=== PATIENT | male | born 1970 | race Caucasian/White ===

== ENCOUNTER 2017-12-09 10:25 | Observation (INO) | payer OTHER ==
[2017-12-09] VITALS (8 sets, daily range): BP systolic 143–188; BP diastolic 88–99; PULSE 81–110; RESP 17–30; TEMP 97.1–98.3; O2SAT 96–100
[~2017-12-09] VITALS: Ht 188 cm; Wt 105.0 kg
[2017-12-09] MEDS ORDERED: SODIUM CHLORIDE 0.9% FLUSH 10 ML FLUSH IVF PRN (11:00)
[2017-12-09] MEDS ORDERED: SODIUM CHLOR 0.9% 1000 ML INJ 1,000 ML IV ONE (11:15)
--- NOTE | 2017-12-09 11:22 | PD ---
HPI Chief Complaint: Chest Pain Time Seen by Provider: 10:56 Travel History International Travel<30 days: No Contact w/Intl Traveler<30days: No Traveled to known affect area: No History of Present Illness HPI 47-year-old male presents the ED for evaluation of sudden onset dizziness, numbness in bilateral lower extremities, intermittent left-sided chest pain, palpitations. States the numbness is worse in the left side than the right side. This occurred while at rest at approximately 10:00 this morning. Lasted a few moments before resolving spontaneously. Chest pain is rated 3/10, worsened by touch and certain motions. The patient denies headache, vision changes, unilateral weakness, facial droop, difficulties with speech, shortness of breath, abdominal pain, nausea, vomiting, dysuria, weakness of the extremities. He endorses daily alcohol use. He endorses daily caffeine intake of 4 12 ounce cups of coffee. He is a current smoker for 20 years. He denies illicit drug use. He is currently following a low sugar diet, has lost ~30 in 7- 8 months. 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 He states that he is under increased stressors, in the process of moving from his apartment. He endorses chronic low back pain and recent overuse. He denies incontinence or saddle anesthesia. He is adopted, does not know his family history. He does not currently have a primary care. States that he has not seen a doctor in years. [facility] Social History Alcohol Use: Yes (DAILY) Tobacco Use: Yes Allergies-Medications (Allergen,Severity, Reaction): Coded Allergies: No Known Allergies (Verified Allergy, Unknown, 12/09/17) Reported Meds & Prescriptions Reported Meds & Active Scripts Active No Active Prescriptions or Reported Medications Review of Systems Except as stated in HPI: all other systems reviewed are Neg Physical Exam Narrative GENERAL: Well-nourished, well-developed anxious white male in no acute distress. SKIN: Warm and dry. HEAD: Normocephalic. Atraumatic. EYES: No scleral icterus. No injection or drainage. PERRLA. EOMI. ENT: Pearly slade tympanic membranes bilaterally. Mucous membranes are dry. Oropharynx without erythema, edema or exudate. NECK: Supple, trachea midline. No JVD or lymphadenopathy. CARDIOVASCULAR: Regular rate and rhythm without murmurs, gallops, or rubs. No carotid bruits. 2+ DP and radial pulses bilaterally. CHEST: Point tenderness over the left pectoral area. Otherwise nontender throughout without deformity or crepitus. No retractions. RESPIRATORY: Breath sounds clear and equal bilaterally. No accessory muscle use. GASTROINTESTINAL: Abdomen soft, non-tender, nondistended. + Bowel sounds MUSCULOSKELETAL: No cyanosis, or edema. Homans sign negative bilaterally. Varicose veins noted, left greater than right. Patient moves extremities spontaneously. NEUROLOGICAL: Awake and alert. Cranial nerves II through XII intact. Motor and sensory grossly within normal limits. Five out of 5 muscle strength in all muscle groups. Normal speech. BACK: Nontender without obvious deformity. No CVA tenderness. Data Data Last Documented VS Vital Signs Date Time Temp Pulse Resp B/P (MAP) Pulse Ox O2 Delivery O2 Flow Rate FiO2 12/09/17 11:34 85 18 167/94 (118) 99 Nasal Cannula 2.00 12/09/17 10:28 97.1 Orders Orders Electrocardiogram (12/09/17 11:00) Ckmb (Isoenzyme) Profile (12/09/17 11:00) Complete Blood Count With Diff (12/09/17 11:00) Comprehensive Metabolic Panel (12/09/17 11:00) Magnesium (Mg) (12/09/17 11:00) Prothrombin Time / Inr (Pt) (12/09/17 11:00) Act Partial Throm Time (Ptt) (12/09/17 11:00) Troponin I (12/09/17 11:00) Ecg Monitoring (12/09/17 11:00) Bilateral Bp Monitoring (12/09/17 11:00) Iv Access Insert/Monitor (12/09/17 11:00) Oximetry (12/09/17 11:00) Sodium Chloride 0.9% Flush (Ns Flush) (12/09/17 11:00) Chest, Pa & Lat (12/09/17 11:00) Blood Glucose (12/09/17 11:12) Sodium Chlor 0.9% 1000 Ml Inj (Ns 1000 M (12/09/17 11:15) Ct Brain W/O Iv Contrast(Rout) (12/09/17 ) Aspirin (Aspirin) (12/09/17 11:30) Potassium Chloride (Kcl) (12/09/17 12:15) CKMB (12/09/17 11:30) CKMB% (12/09/17 11:30) Drug Screen, Random Urine (12/09/17 13:28) Admit Order (Ed Use Only) (12/09/17 13:29) Place In Observation (12/09/17 ) Code Status (12/09/17 13:28) Vital Signs (Adult) Q2HX12,Q4H (12/09/17 13:28) Nih Stroke Scale - Nihss .Daily (12/09/17 13:28) Neuro Checks Q2HX12,Q4H (12/09/17 13:28) Notify Dr: Other (12/09/17 13:28) Pt Request For Service (12/09/17 13:) Activity Oob Ad Ca (12/09/17 13:28) Nursing Bedside Swallow Assess .ONCE (12/09/17 13:28) Scd Bilateral/Knee High ROSIE.QSHIFT (12/09/17 13:28) Complete Blood Count With Diff (12/10/17 06:00) Hemoglobin (Hgb) A1c (12/09/17 13:28) Basic Metabolic Panel (Bmp) (12/10/17 06:00) Lipid Profile (12/10/17 06:00) Us Carotid Arteries Comp Bilat (12/09/17 ) Holter Monitor Recording (12/09/17 ) Mra Brain W/O Contrast (Cow) (12/09/17 ) Mri Brain W/O Contrast (12/09/17 ) Echo 2d Comp With Doppler (12/09/17 ) Consult Neurology (12/09/17 ) Sodium Chloride 0.9% Flush (Ns Flush) (12/09/17 21:00) Sodium Chloride 0.9% Flush (Ns Flush) (12/09/17 13:30) Enalaprilat Inj (Vasotec Inj) (12/09/17 13:30) Aspirin (Aspirin) (12/09/17 13:30) Central Sterile Supply Technician / Telemetry ROSIE.Q8H (12/09/17 13:28) Consult Stroke Navigator (12/09/17 ) Scd Bilateral/Knee High ROSIE.BID (12/09/17 13:28) Thyroid Stimulating Hormone (12/09/17 13:28) Free Thyroxine (T4) (12/09/17 13:28) Rapid Plasma Regin (Rpr) W Ttr (12/09/17 13:28) Vitamin B12 (12/09/17 13:28) Folate, Serum (12/09/17 13:28) Ammonia (12/09/17 13:28) Labs Laboratory Tests Test 12/09/17 11:30 White Blood Count 9.5 TH/MM3 Red Blood Count 4.60 MIL/MM3 Hemoglobin 15.0 GM/DL Hematocrit 44.8 % Mean Corpuscular Volume 97.4 FL Mean Corpuscular Hemoglobin 32.6 PG Mean Corpuscular Hemoglobin Concent 33.5 % Red Cell Distribution Width 14.1 % Platelet Count 206 TH/MM3 Mean Platelet Volume 9.6 FL Neutrophils (%) (Auto) 65.4 % Lymphocytes (%) (Auto) 25.9 % Monocytes (%) (Auto) 7.3 % Eosinophils (%) (Auto) 0.9 % Basophils (%) (Auto) 0.5 % Neutrophils # (Auto) 6.2 TH/MM3 Lymphocytes # (Auto) 2.4 TH/MM3 Monocytes # (Auto) 0.7 TH/MM3 Eosinophils # (Auto) 0.1 TH/MM3 Basophils # (Auto) 0.0 TH/MM3 CBC Comment DIFF FINAL Differential Comment Prothrombin Time 9.7 SEC Prothromb Time International Ratio 1.0 RATIO Activated Partial Thromboplast Time 25.5 SEC Blood Urea Nitrogen 15 MG/DL Creatinine 1.04 MG/DL Random Glucose 84 MG/DL Total Protein 8.2 GM/DL Albumin 4.3 GM/DL Calcium Level 9.6 MG/DL Magnesium Level 1.6 MG/DL Alkaline Phosphatase 54 U/L Aspartate Amino Transf (AST/SGOT) 28 U/L Alanine Aminotransferase (ALT/SGPT) 28 U/L Total Bilirubin 0.7 MG/DL Sodium Level 139 MEQ/L Potassium Level 3.4 MEQ/L Chloride Level 106 MEQ/L Carbon Dioxide Level 13.0 MEQ/L Anion Gap 20 MEQ/L Estimat Glomerular Filtration Rate 77 ML/MIN Total Creatine Kinase 396 U/L Creatine Kinase MB 1.7 NG/ML Creatine Kinase MB % 0.4 % Troponin I LESS THAN 0.02 NG/ML Vitamin B12 Level 269 PG/ML Folate 6.7 NG/ML Free Thyroxine 1.33 NG/DL Thyroid Stimulating Hormone 3rd Gen 0.765 uIU/ML Ethyl Alcohol Level 55 MG/DL MDM Medical Decision Making Medical Screen Exam Complete: Yes Emergency Medical Condition: Yes Differential Diagnosis Anxiety versus hypoglycemia versus dehydration versus caffeine misuse versus alcohol withdrawal versus radiculopathy versus less likely ACS versus less likely ICH versus hypertension versus other Narrative Course 47-year-old male presents the ED for evaluation of sudden onset dizziness, numbness in bilateral lower extremities, intermittent left-sided chest pain, palpitations. This occurred while at rest at approximately 10:00 this morning. Lasted a few moments before resolving spontaneously. He endorses daily alcohol use. He endorses daily caffeine intake of 4 12 ounce cups of coffee. He is a current smoker for 20 years. He denies illicit drug use. He is currently following a low sugar diet, has lost ~30 in 7-8 months. 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 He states that he is under increased stressors, in the process of moving from his apartment. He endorses chronic low back pain and recent overuse. He is adopted, does not know his family history. He does not currently have a primary care. States that he has not seen a doctor in years. Patient's afebrile, pulse 110, BP 188/9930, O2 sats 100 on room air on presentation. On exam there is no focal neuro deficits. He has reproducible left-sided chest pain. Exam is otherwise unremarkable. IV was established. Patient was administered 325 mg aspirin, 1 L normal saline. EKG rate 97, sinus rhythm. VT interval 148, QRS 106, QTc 418 ms. Borderline LAD. Incomplete RBBB. No acute ST changes. Reviewed by Dr. Sargent. CXR: Negative exam per radiology read. Cardiac enzymes negative 1. CT brain: Negative CT head noncontrast per radiology read. CBC unremarkable. INR 1.0. CMP: Potassium 3.4. BUN 15, creatinine 1.04. CK 396. I discussed the results of the workup with the patient. He states that he still having the numbness in his extremities but otherwise is feeling better. Heart rate 85, BP 167/94, respiratory rate 18 on recheck. I recommended admission for TIA and ACS rule out. Patient is agreeable to the plan. I spoke with Dr. Gallagher who agrees to accept the patient to the medicine service. Please see medicine notes for disposition. Scripts No Active Prescriptions or Reported Meds Graciela Ortiz Dec 09, 2017 11:22
[2017-12-09] MEDS ORDERED: ASPIRIN 325 MG TAB PO ONE (11:30)
--- NOTE | 2017-12-09 11:43 | RADRPT ---
EXAM DATE: 12/09/2017 11:32 AM EDT AGE/SEX: 47 years / Male INDICATIONS: Chest pain. Possible anxiety attack. CLINICAL DATA: This is the patient's initial encounter. Patient reports that signs and symptoms have been present for 1 day and indicates a pain score of 3/10. MEDICAL/SURGICAL HISTORY: None. None. COMPARISON: No prior [facility] exams available for comparison. FINDINGS: PA and lateral views of the chest demonstrate the lungs to be symmetrically aerated without evidence of mass, infiltrate or effusion. The cardiomediastinal contours are unremarkable. Osseous structures are intact. CONCLUSION: Negative examination. Electronically signed by: Herber David MD 12/09/2017 11:41 AM EDT
[2017-12-09 11:52] LABS: AUTOMATED NEUTROPHIL # 6.2 TH/MM3 (1.8-7.7); BASOPHIL % 0.5 % (0.0-2.0); EOSINOPHIL # 0.1 TH/MM3 (0-0.4); EOSINOPHIL % 0.9 % (0.0-4.0); HEMATOCRIT 44.8 % (39.0-51.0); LYMPH % 25.9 % (9.0-44.0); LYMPHOCYTE # 2.4 TH/MM3 (1.0-4.8); MEAN CELL VOLUME 97.4 FL (80.0-100.0); MEAN CORPUSCULAR HEMOGLOBIN 32.6 PG (27.0-34.0); MEAN CORPUSCULAR HGB CONC 33.5 % (32.0-36.0); MEAN PLATELET VOLUME 9.6 FL (7.0-11.0); MONO % 7.3 % (0.0-8.0); MONOCYTE # 0.7 TH/MM3 (0-0.9); NEUT % 65.4 % (16.0-70.0); PLATELET COUNT 206 TH/MM3 (150-450); RED CELL DISTRIBUTION WIDTH 14.1 % (11.6-17.2); WHITE BLOOD COUNT 9.5 TH/MM3 (4.0-11.0)
[2017-12-09 12:04] LABS: PROTHROMBIN TIME - PATIENT 9.7 SEC (9.8-11.6)
[2017-12-09 12:14] LABS: ALBUMIN 4.3 GM/DL (3.4-5.0); AST (GOT) 28 U/L (15-37); BLOOD UREA NITROGEN 15 MG/DL (7-18); CALCIUM 9.6 MG/DL (8.5-10.1); CHLORIDE 106 MEQ/L (98-107); CREATININE 1.04 MG/DL (0.60-1.30); GLOMERULAR FILTRATION RATE 77 ML/MIN (>89); GLUCOSE,RANDOM 84 MG/DL (74-106); MAGNESIUM 1.6 MG/DL (1.5-2.5); SODIUM (NA) 139 MEQ/L (136-145)
[2017-12-09] MEDS ORDERED: POTASSIUM CHLORIDE 20 MEQ CONTROLLED RELEASE TAB PO ONE (12:15)
[2017-12-09 12:19] LABS: ALKALINE PHOSPHATASE 54 U/L (45-117); ALT (GPT) 28 U/L (12-78); TOTAL BILIRUBIN ADULT 0.7 MG/DL (0.2-1.0); TOTAL PROTEIN 8.2 GM/DL (6.4-8.2); TROPONIN I LESS THAN 0.02 NG/ML (0.02-0.05)
--- NOTE | 2017-12-09 12:44 | RADRPT ---
EXAM DATE: 12/09/2017 12:37 PM EDT AGE/SEX: 47 years / Male INDICATIONS: Left leg numbness, dizziness. CLINICAL DATA: This is the patient's initial encounter. Patient reports that signs and symptoms have been present for 1 day and indicates a pain score of 3/10. MEDICAL/SURGICAL HISTORY: None. None. RADIATION DOSE: 36.86 CTDI (mGy) COMPARISON: No prior [facility] exams available for comparison. TECHNIQUE: CT of the head without contrast. Using automated exposure control and adjustment of the mA and/or kV according to patient size, radiation dose was kept as low as reasonably achievable to ob tain optimal diagnostic quality images. FINDINGS: Cerebrum: The ventricles are normal for age. No evidence of midline shift, mass lesion, hemorrhage or acute infarction. No extraaxial fluid collections are seen. Posterior Fossa: The cerebellum and brainstem are intact. The 4th ventricle is midline. The cerebe llopontine angle is unremarkable. Extracranial: The visualized portion of the orbits is intact. Skull: The calvaria is intact. No evidence of skull fracture. CONCLUSION: Negative CT Head non contrast. Electronically signed by: Herber David MD 12/09/2017 12:43 PM EDT
[2017-12-09] MEDS ORDERED: ASPIRIN 325 MG TAB PO SCH (13:30)
[2017-12-09] MEDS ORDERED: SODIUM CHLORIDE 0.9% FLUSH 10 ML FLUSH IV FLUSH PRN ×2 (13:30→15:45)
[2017-12-09] MEDS ORDERED: ENALAPRILAT 1.25 MG/ML VIAL IV PUSH PRN (13:30)
[2017-12-09] MEDS ORDERED: NITROGLYCERIN 0.4 MG SL 25 TABS/BTL SL PRN (13:45)
--- NOTE | 2017-12-09 14:20 | HHI.HP ---
HPI Service [facility] Hospitalists Primary Care Physician Dr. Gilbert Jo Admission Diagnosis chest pain, parasthesias, hypertension Chief Complaint: Chest pain, paresthesia Travel History International Travel<30 Days: No Contact w/Intl Traveler <30 Da: No Traveled to Known Affected Are: No History of Present Illness Mr. Cowart is a 47 y/o male with chronic low back pain, tobacco use and regular alcohol use. He presented to the ED for evaluation of sudden onset of dizziness , numbness in left lower extremity, and intermittent left-sided chest pain. This reported numbness on the left side that occurred while at rest at approximately 10:00 this morning and he became increasingly anxious and felt dizzy. This reportedly lasted a few moments before resolving spontaneously. The chest pain is located on the left side and is reportedly worsened by touch and certain motions that has been occurring intermittently for the last few months, lasting about 5-10 minutes and would resolve on its own. There is no radiation of the pain anywhere. The patient drinks about 4-5 cups of coffee per day. He denies any associated SOB, palpitations, nausea or diaphoresis. He does report that he is generally an anxious person and seems to be self medicating with alcohol. The patient denies headache, vision changes, unilateral weakness, facial droop, difficulties with speech, shortness of breath, abdominal pain, nausea, vomiting, dysuria, weakness of the extremities. He does report daily alcohol use. He is currently following a low sugar diet and has lost ~30 in 7-8 months. He states that he is under increased stressors, in the process of moving from his apartment. He denies incontinence or saddle anesthesia. Review of Systems Constitutional: COMPLAINS OF: Dizziness, DENIES: Diaphoretic episodes, Fever, Chills Eyes: DENIES: Vision loss Ears, nose, mouth, throat: DENIES: Hearing loss Respiratory: DENIES: Shortness of breath Cardiovascular: DENIES: Chest pain, Palpitations, Dyspnea on Exertion, Lower Extremity Edema Gastrointestinal: DENIES: Abdominal pain, Diarrhea, Nausea, Reflux, Vomiting Genitourinary: DENIES: Hematuria, Dysuria Musculoskeletal: DENIES: Joint pain, Back pain, Neck pain Integumentary: DENIES: Pruritus, Rash Neurologic: COMPLAINS OF: Paresthesias, DENIES: Abnormal gait, Localized weakness, Seizures, Poor Balance Psychiatric: DENIES: Confusion Past Family Social History Past Medical History Chronic back pain Tobacco use Alcohol use Past Surgical History None reported Reported Medications No Active Prescriptions or Reported Medications Allergies: Coded Allergies: No Known Allergies (Verified Allergy, Unknown, 12/09/17) Family History He was adopted, does not know his biological family history. Social History Pt does report daily alcohol use, typically drinks 1-2 during the week and on the weekends upwards of 5-6 drinks. Daily caffeine intake of 4-5, 12 ounce cups of coffee. (+)Tobacco use, 1ppd x 20 years. 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 Physical Exam Vital Signs Vital Signs Date Time Temp Pulse Resp B/P (MAP) Pulse Ox O2 Delivery O2 Flow Rate FiO2 12/09/17 11:34 85 18 167/94 (118) 99 Nasal Cannula 2.00 12/09/17 11:32 83 18 182/95 (124) 98 Nasal Cannula 2.00 167/94 (118) 12/09/17 11:31 83 18 98 Nasal Cannula 2.00 12/09/17 10:53 100 Nasal Cannula 2.00 12/09/17 10:46 97 22 180/93 (122) 100 Nasal Cannula 2.00 12/09/17 10:28 97.1 110 30 188/99 (128) 100 Physical Exam GENERAL: This is a well-nourished, well-developed patient, in no apparent distress. SKIN: No rashes, ecchymoses or lesions. Cool and dry. HEENT: Atraumatic. Normocephalic. No temporal or scalp tenderness. No scleral icterus. Airway patent. NECK: Trachea midline, supple, nontender. CARDIO: Regular rate and rhythm without murmurs, gallops, or rubs. RESP: CTA bilaterally. No wheezes, rales, or rhonchi. ABD: +BS, soft, non-tender, nondistended. EXT: Extremities without clubbing, cyanosis, or edema. No joint tenderness, effusion, or edema noted. No calf tenderness. 2+ pedal pulses bilaterally. NEURO: Awake and alert. Cranial nerves II through XII intact. Motor and sensory grossly within normal limits. Five out of 5 muscle strength in all muscle groups. Normal speech. Laboratory Laboratory Tests Test 12/09/17 11:30 12/09/17 13:48 White Blood Count 9.5 Red Blood Count 4.60 Hemoglobin 15.0 Hematocrit 44.8 Mean Corpuscular Volume 97.4 Mean Corpuscular Hemoglobin 32.6 Mean Corpuscular Hemoglobin Concent 33.5 Red Cell Distribution Width 14.1 Platelet Count 206 Mean Platelet Volume 9.6 Neutrophils (%) (Auto) 65.4 Lymphocytes (%) (Auto) 25.9 Monocytes (%) (Auto) 7.3 Eosinophils (%) (Auto) 0.9 Basophils (%) (Auto) 0.5 Neutrophils # (Auto) 6.2 Lymphocytes # (Auto) 2.4 Monocytes # (Auto) 0.7 Eosinophils # (Auto) 0.1 Basophils # (Auto) 0.0 CBC Comment DIFF FINAL Differential Comment Prothrombin Time 9.7 Prothromb Time International Ratio 1.0 Activated Partial Thromboplast Time 25.5 Blood Urea Nitrogen 15 Creatinine 1.04 Random Glucose 84 Total Protein 8.2 Albumin 4.3 Calcium Level 9.6 Magnesium Level 1.6 Alkaline Phosphatase 54 Aspartate Amino Transf (AST/SGOT) 28 Alanine Aminotransferase (ALT/SGPT) 28 Total Bilirubin 0.7 Sodium Level 139 Potassium Level 3.4 Chloride Level 106 Carbon Dioxide Level 13.0 Anion Gap 20 Estimat Glomerular Filtration Rate 77 Total Creatine Kinase 396 Creatine Kinase MB 1.7 Creatine Kinase MB % 0.4 Troponin I LESS THAN 0.02 Result Diagram: 12/09/17 1130 12/09/17 1130 Imaging Last Impressions Chest X-Ray 12/09/17 1100 Signed Impressions: CONCLUSION: Negative examination. Head CT 12/09/17 0000 Signed Impressions: CONCLUSION: Negative CT Head non contrast. Caprini VTE Risk Assessment Caprini VTE Risk Assessment: Mod/High Risk (score >= 2) Caprini Risk Assessment Model Point Value = 1 Point Value = 2 Point Value = 3 Point Value = 5 Age 41-60 Minor surgery BMI > 25 kg/m2 Swollen legs Varicose veins or History of unexplained or recurrent spontaneous Oral contraceptives or hormone replacement Sepsis (< 1 month) Serious lung disease, including pneumonia (< 1 month) Abnormal pulmonary function Acute myocardial infarction Congestive heart failure (< 1 month) History of inflammatory bowel disease Medical patient at bed rest Age 61-74 Arthroscopic surgery Major open surgery (> 45 min) Laparoscopic surgery (> 45 min) Malignancy Confined to bed (> 72 hours) Immobilizing plaster cast Central venous access Age >= 75 History of VTE Family history of VTE Factor V Leiden Prothrombin [id number] Lupus anticoagulant Anticardiolipin antibodies Elevated serum homocysteine Heparin-induced thrombocytopenia Other congenital or acquired thrombophilia Stroke (< 1 month) Elective arthroplasty Hip, pelvis, or leg fracture Acute spinal cord injury (< 1 month) Prophylaxis Regimen Total Risk Factor Score Risk Level Prophylaxis Regimen 0-1 Low Early ambulation 2 Moderate Order ONE of the following: *Sequential Compression Device (SCD) *Heparin 5000 units SQ BID 3-4 Higher Order ONE of the following medications: *Heparin 5000 units SQ TID *Enoxaparin/Lovenox 40 mg SQ daily (WT < 150 kg, CrCl > 30 mL/min) *Enoxaparin/Lovenox 30 mg SQ daily (WT < 150 kg, CrCl > 10-29 mL/min) *Enoxaparin/Lovenox 30 mg SQ BID (WT < 150 kg, CrCl > 30 mL/min) AND/OR *Sequential Compression Device (SCD) 5 or more Highest Order ONE of the following medications: *Heparin 5000 units SQ TID (Preferred with Epidurals) *Enoxaparin/Lovenox 40 mg SQ daily (WT < 150 kg, CrCl > 30 mL/min) *Enoxaparin/Lovenox 30 mg SQ daily (WT < 150 kg, CrCl > 10-29 mL/min) *Enoxaparin/Lovenox 30 mg SQ BID (WT < 150 kg, CrCl > 30 mL/min) AND *Sequential Compression Device (SCD) Assessment and Plan Problem List: (1) Paresthesia ICD Codes: R20.2 - Paresthesia of skin Status: Acute Plan: - Pt is a 47 y/o male with chronic low back pain, tobacco use and regular alcohol use. - He presented to the ED for evaluation of sudden onset of dizziness, numbness in left lower extremity, and intermittent left-sided chest pain. - This reported LLE numbness occurred today while at rest at approximately 10: 00 this morning and he became increasingly anxious and felt dizzy. This reportedly seems to have been waxing and waning since onset. There has been no reported weakness in the LE and he denies any weakness or paresthesia in the UE or the RLE. Pt has good pulses in bilateral LE on examination. - Neurology has been consulted - Head CT was negative. - MRI/MRA is ordered - Carotid US ordered - Holter - Telemetry - Pt was given ASA in the ED - Supportive care - DVT prophylaxis (2) Chest pain ICD Codes: R07.9 - Chest pain, unspecified Plan: - The chest pain is located on the left side and is reportedly worsened by touch and certain motions that has been occurring intermittently for the last few months, lasting about 5-10 minutes and would resolve on its own. There is no radiation of the pain anywhere. He denies any associated SOB, palpitations, nausea or diaphoresis. - He has been under increased stress over the last few months - First set of Troponin is negative. - CK is elevated slightly but pt was moving from an apartment to his house all weekend - Trend serial CE - Check 2D echo - Pt given ASA in the ED and we will continue this in the morning (3) Alcohol abuse ICD Codes: F10.10 - Alcohol abuse, uncomplicated Status: Chronic Plan: - He does report that he is generally an anxious person and seems to be self medicating with alcohol. - [facility] protocol - Start Librium 25mg TID (4) Tobacco abuse ICD Codes: Z72.0 - Tobacco use Status: Chronic Plan: - Pt declines nicotine patch Assessment and Plan Patient examined. Assessment and plan formulated with Salma Matthews PA-C. I agree with the above. Pt's c/o atypical paresthesia at E which stated yesterday. Pt describes the paresthesia as circumferential and starting on day of admission. Pt c/o anxiety which is sometimes relieved with alcohol and tobacco. Pt feels that he has been under increased pressure at work recently. Pt also c/o chest pain. Pt describes the chest pain as occurring over the left side of his chest without radiation. No anginal equivalents such as shortness of breath, nausea, any vomiting, or diaphoresis. Patient states that these episodes of intermittent chest pain have been ongoing for months and usually last 5-10 minutes. The chest pain resolves spontaneously. Patient is adopted and cannot provide family history. Salma Matthews Dec 09, 2017 14:20 Gilbert Gallagher DO Dec 10, 2017 08:47
--- NOTE | 2017-12-09 14:54 | MB ---
cc: Baudilio Sosa MD, PhD DATE: 12/09/2017 REASON FOR CONSULTATION: TIA. HISTORY OF PRESENT ILLNESS: Mr. Cowart is a very nice 47-year-old man who presents with chest pain, as well as numbness involving the left leg and left arm. He has no weakness. Denies any double vision or slurred speech. The numbness in the arm has improved, but he still has difficulty with numbness of the left leg. PAST MEDICAL HISTORY: Otherwise unremarkable. MEDICATIONS AT HOME: None. ALLERGIES: NONE KNOWN. SOCIAL HISTORY: He does smoke. He does drink alcohol. He drinks caffeine daily. PHYSICAL EXAMINATION: VITAL SIGNS: Blood pressure is 132/98, pulse is 81, respiratory rate is 18, temperature is 97.1 degrees. NEUROLOGICAL EXAMINATION: Higher cortical functions are normal. Cranial nerves intact. Motor Exam: He has normal strength and tone of all groups in the upper and lower extremities. There is no drift. Fine motor skills are within normal limits. Reflexes are symmetric. Cerebellar testing is normal. Sensory exam is slightly diminished in the left leg compared with the right to soft touch. Normal sensation in the upper extremities. Cerebellar testing is normal. IMAGING STUDIES: CT of the brain is normal. LABORATORY DATA: The white count is 9500, hemoglobin 15, hematocrit 44%, platelet count 206,000. PT 9.7, INR 1, aPTT 25.5. Sodium is 139, potassium 3.4, chloride 106. The BUN is 15, creatinine 1.04. EKG: He is in normal sinus rhythm. IMPRESSION: Possible lacunar stroke, right hemisphere. RECOMMENDATIONS: Start aspirin 325 mg daily. We will obtain further evaluation, MRI/MRA brain, echocardiogram, carotid ultrasound, lipid panel. Monitor cardiac telemetry, rule out atrial fibrillation. Baudilio Sosa MD, PhD [facility] , 02:37 PM , 02:53 PM
[2017-12-09 15:30] LABS: FOLATE 6.7 NG/ML (3.1-17.5); FREE T4 1.33 NG/DL (0.76-1.46)
[2017-12-09] MEDS ORDERED: LORazepam 1 MG TAB PO PRN (15:45)
[2017-12-09] MEDS ORDERED: FLUMAZENIL 0.5 MG/5 ML VIAL IV PUSH PRN (15:45)
[2017-12-09] MEDS ORDERED: LORazepam 2 MG/ML VIAL IV PUSH PRN ×4 (15:45)
[2017-12-09] MEDS ORDERED: LORazepam 2 MG TAB PO PRN (15:45)
--- NOTE | 2017-12-09 16:29 | RADRPT ---
EXAM DATE: 12/09/2017 4:14 PM EDT AGE/SEX: 47 years / Male INDICATIONS: Bilateral lower extremity numbness. CLINICAL DATA: This is the patient's initial encounter. Patient reports that signs and symptoms have been present for 1 day and indicates a pain score of 2/10. MEDICAL/SURGICAL HISTORY: None. None. COMPARISON: No prior [facility] exams available for comparison. FINDINGS: The vertebral bodies are in normal alignment without evidence of compression deformity prominent anisa r bridging anterior osteophyte at C4-5. Bone density is normal for age. Soft tissues are grossly int act. CONCLUSION: 1. 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 2. Otherwise, vertebral body and disc heights are maintained without acute fracture or listhesis. Electronically signed by: Ian Soto MD 12/09/2017 4:27 PM EDT
[2017-12-09 17:10] LABS: HEMOGLOBIN A1C 5.2 % (4.3-6.0)
[2017-12-09] MEDS: chlordiazePOXIDE 25 MG CAP PO SCH (17:11)
--- NOTE | 2017-12-09 17:22 | RADRPT ---
EXAM DATE: 12/09/2017 5:01 PM EDT AGE/SEX: 47 years / Male INDICATIONS: CVA. Left sided weakness. CLINICAL DATA: This is the patient's initial encounter. Patient reports that signs and symptoms have been present for 1 day and indicates a pain score of 0/10. MEDICAL/SURGICAL HISTORY: None. None. COMPARISON: No prior [place] exams available for comparison. TECHNIQUE: 3D [id number] MRA was performed. Source images, multiplanar STS MIP, and 3D volum e MIP reconstructions were reviewed. FINDINGS: There is excellent visualization of the major intracranial arteries out to the second-order branch ve ssels. There is no evidence for aneurysm, vessel truncation or stenosis, and no evidence for vascula r malformation. CONCLUSION: Negative MRA [facility] ([facility]) non contrast. Electronically signed by: Herber David MD 12/09/2017 5:21 PM EDT
--- NOTE | 2017-12-09 17:24 | RADRPT ---
EXAM DATE: 12/09/2017 5:08 PM EDT AGE/SEX: 47 years / Male INDICATIONS: CVA. Left sided weakness. CLINICAL DATA: This is the patient's initial encounter. Patient reports that signs and symptoms have been present for 1 day and indicates a pain score of 0/10. MEDICAL/SURGICAL HISTORY: None. None. COMPARISON: No prior [facility] exams available for comparison. TECHNIQUE: Multiplanar, multisequence examination of the brain was performed without contrast. FINDINGS: Cerebrum: The ventricles are normal for age. No evidence of midline shift, mass lesion, hemorrhage or acute infarction. No extraaxial fluid collections are seen. The pituitary gland and suprasellar cistern are normal in configuration. White Matter: Minimal white matter changes with a few deep white matter and subcortical foci of incr eased T2 FLAIR signal intensity predominantly on the right. Posterior Fossa: The cerebellum and brainstem are intact. The 4th ventricle is midline. The cerebel lopontine angle is unremarkable. The cerebellar tonsils are normal in position. Diffusion Imaging: No focal areas of restricted diffusion are seen. No evidence of acute infarction . Extracranial: The visualized portions of the orbits and paranasal sinuses are unremarkable. CONCLUSION: 1. Minimal, chronic-appearing white matter changes predominantly on the right. 2. Nothing acute. Electronically signed by: Ian Soto MD 12/09/2017 5:22 PM EDT
--- NOTE | 2017-12-09 17:52 | RADRPT ---
EXAM DATE: 12/09/2017 5:33 PM EDT AGE/SEX: 47 years / Male INDICATIONS: Transient ischemic attack. CLINICAL DATA: This is the patient's initial encounter. Patient reports that signs and symptoms have been present for 2 days and indicates a pain score of 0/10. MEDICAL/SURGICAL HISTORY: . No significant medical history. None. COMPARISON: No prior [place] exams available for comparison. No external comparison. VELOCITY PARAMETERS: ICA/CCA Ratio: Right 0.8 , Left 1.0 ICA: Right 105 cm/sec, Left 102 cm/sec CCA: Right 127 cm/sec, Left 102 cm/sec ECA: Right 100 cm/sec, Left 83 cm/sec Vertebral: Right 69 cm/sec antegrade, Left 70 cm/sec antegrade FINDINGS: Right Carotid: No significant stenosis is visualized. The waveforms are within normal limits. Left Carotid: No significant stenosis is visualized. The waveforms are within normal limits. Other: None. CONCLUSION: No evidence of flow-limiting carotid stenosis. Electronically signed by: Herber David MD 12/09/2017 5:51 PM EDT
[2017-12-09] MEDS: SODIUM CHLORIDE 0.9% FLUSH 10 ML FLUSH IV FLUSH SCH (20:10)
[2017-12-09 20:30] LABS: MAGNESIUM 1.7 MG/DL (1.5-2.5)
[2017-12-09 20:33] LABS: TROPONIN I LESS THAN 0.02 NG/ML (0.02-0.05)
[2017-12-09] MEDS ORDERED: SODIUM CHLORIDE 0.9% FLUSH 10 ML FLUSH IV FLUSH SCH (21:00)
[2017-12-10 00:41] VITALS: BP 160/96; PULSE 70; RESP 17; TEMP 98.3; O2SAT 93
[2017-12-10 01:35] LABS: TROPONIN I LESS THAN 0.02 NG/ML (0.02-0.05)
[2017-12-10 03:12] VITALS: BP 139/98; PULSE 74; RESP 16; TEMP 98.4; O2SAT 98
[2017-12-10 06:52] LABS: AUTOMATED NEUTROPHIL # 6.4 TH/MM3 (1.8-7.7); BASOPHIL % 0.4 % (0.0-2.0); EOSINOPHIL # 0.1 TH/MM3 (0-0.4); EOSINOPHIL % 1.2 % (0.0-4.0); HEMOGLOBIN 14.6 GM/DL (13.0-17.0); LYMPH % 18.5 % (9.0-44.0); LYMPHOCYTE # 1.6 TH/MM3 (1.0-4.8); MEAN CELL VOLUME 98.6 FL (80.0-100.0); MEAN CORPUSCULAR HEMOGLOBIN 33.5 PG (27.0-34.0); MEAN CORPUSCULAR HGB CONC 33.9 % (32.0-36.0); MEAN PLATELET VOLUME 9.4 FL (7.0-11.0); MONO % 6.6 % (0.0-8.0); MONOCYTE # 0.6 TH/MM3 (0-0.9); NEUT % 73.3 % (16.0-70.0); PLATELET COUNT 170 TH/MM3 (150-450); RED BLOOD COUNT 4.36 MIL/MM3 (4.50-5.90); RED CELL DISTRIBUTION WIDTH 13.8 % (11.6-17.2); WHITE BLOOD COUNT 8.7 TH/MM3 (4.0-11.0)
[2017-12-10 07:11] LABS: BICARBONATE 18.5 MEQ/L (21.0-32.0); CALCIUM 8.7 MG/DL (8.5-10.1); CREATININE 0.73 MG/DL (0.60-1.30)
[2017-12-10 07:17] LABS: CHOLESTEROL/ HDL RATIO 3.8 RATIO; HDL CHOLESTEROL 41.5 MG/DL (40.0-60.0)
[2017-12-10 08:00] VITALS: BP 158/87; PULSE 69; RESP 20; TEMP 97.8; O2SAT 97
[2017-12-10 08:50] VITALS: PULSE 71
[2017-12-10] MEDS ORDERED: ASPIRIN 325 MG TAB PO SCH (09:00)
[2017-12-10] MEDS: chlordiazePOXIDE 25 MG CAP PO SCH ×2 (09:47→12:51)
[2017-12-10] MEDS: SODIUM CHLORIDE 0.9% FLUSH 10 ML FLUSH IV FLUSH SCH (09:47)
--- NOTE | 2017-12-10 11:11 | HHI.PR ---
Subjective Remarks Pt planned for treadmill stress test today Objective Vitals Vital Signs Date Time Temp Pulse Resp B/P (MAP) Pulse Ox O2 Delivery O2 Flow Rate FiO2 12/10/17 08:50 71 12/10/17 08:00 97.8 69 20 158/87 (110) 97 12/10/17 03:12 98.4 74 16 139/98 (112) 98 12/10/17 00:41 98.3 70 17 160/96 (117) 93 12/09/17 19:37 98.2 84 17 143/88 (106) 96 12/09/17 16:02 98.3 86 20 177/89 (118) 97 12/09/17 14:22 81 18 172/98 (122) 100 12/09/17 14:22 81 18 172/98 (122) 100 Room Air 12/09/17 11:34 85 18 167/94 (118) 99 Nasal Cannula 2.00 12/09/17 11:32 83 18 182/95 (124) 98 Nasal Cannula 2.00 167/94 (118) 12/09/17 11:31 83 18 98 Nasal Cannula 2.00 12/10/17 12/10/17 12/11/17 15:00 23:00 07:00 Intake Total 200 ml Balance 200 ml Intake Oral 200 ml Result Diagram: 12/10/17 0550 12/10/17 0555 Other Results Laboratory Tests Test 12/09/17 11:30 12/09/17 13:48 12/09/17 18:30 12/09/17 18:37 White Blood Count 9.5 TH/MM3 Red Blood Count 4.60 MIL/MM3 Hemoglobin 15.0 GM/DL Hematocrit 44.8 % Mean Corpuscular Volume 97.4 FL Mean Corpuscular Hemoglobin 32.6 PG Mean Corpuscular Hemoglobin Concent 33.5 % Red Cell Distribution Width 14.1 % Platelet Count 206 TH/MM3 Mean Platelet Volume 9.6 FL Neutrophils (%) (Auto) 65.4 % Lymphocytes (%) (Auto) 25.9 % Monocytes (%) (Auto) 7.3 % Eosinophils (%) (Auto) 0.9 % Basophils (%) (Auto) 0.5 % Neutrophils # (Auto) 6.2 TH/MM3 Lymphocytes # (Auto) 2.4 TH/MM3 Monocytes # (Auto) 0.7 TH/MM3 Eosinophils # (Auto) 0.1 TH/MM3 Basophils # (Auto) 0.0 TH/MM3 CBC Comment DIFF FINAL Differential Comment Prothrombin Time 9.7 SEC Prothromb Time International Ratio 1.0 RATIO Activated Partial Thromboplast Time 25.5 SEC Blood Urea Nitrogen 15 MG/DL Creatinine 1.04 MG/DL Random Glucose 84 MG/DL Total Protein 8.2 GM/DL Albumin 4.3 GM/DL Calcium Level 9.6 MG/DL Magnesium Level 1.6 MG/DL 1.7 MG/DL Alkaline Phosphatase 54 U/L Aspartate Amino Transf (AST/SGOT) 28 U/L Alanine Aminotransferase (ALT/SGPT) 28 U/L Total Bilirubin 0.7 MG/DL Sodium Level 139 MEQ/L Potassium Level 3.4 MEQ/L Chloride Level 106 MEQ/L Carbon Dioxide Level 13.0 MEQ/L Anion Gap 20 MEQ/L Estimat Glomerular Filtration Rate 77 ML/MIN Hemoglobin A1c 5.2 % Total Creatine Kinase 396 U/L 284 U/L Creatine Kinase MB 1.7 NG/ML Creatine Kinase MB % 0.4 % Troponin I LESS THAN 0.02 NG/ML LESS THAN 0.02 NG/ML Vitamin B12 Level 269 PG/ML Folate 6.7 NG/ML Free Thyroxine 1.33 NG/DL Thyroid Stimulating Hormone 3rd Gen 0.765 uIU/ML Ethyl Alcohol Level 55 MG/DL Ammonia 16 MCMOL/L Rapid Plasma Reagin NON-REACTIVE Urine Opiates Screen NEG Urine Barbiturates Screen NEG Urine Amphetamines Screen NEG Urine Benzodiazepines Screen NEG Urine Cocaine Screen NEG Urine Cannabinoids Screen NEG Test 12/10/17 00:15 12/10/17 05:50 12/10/17 05:55 Total Creatine Kinase 227 U/L Troponin I LESS THAN 0.02 NG/ML White Blood Count 8.7 TH/MM3 Red Blood Count 4.36 MIL/MM3 Hemoglobin 14.6 GM/DL Hematocrit 43.0 % Mean Corpuscular Volume 98.6 FL Mean Corpuscular Hemoglobin 33.5 PG Mean Corpuscular Hemoglobin Concent 33.9 % Red Cell Distribution Width 13.8 % Platelet Count 170 TH/MM3 Mean Platelet Volume 9.4 FL Neutrophils (%) (Auto) 73.3 % Lymphocytes (%) (Auto) 18.5 % Monocytes (%) (Auto) 6.6 % Eosinophils (%) (Auto) 1.2 % Basophils (%) (Auto) 0.4 % Neutrophils # (Auto) 6.4 TH/MM3 Lymphocytes # (Auto) 1.6 TH/MM3 Monocytes # (Auto) 0.6 TH/MM3 Eosinophils # (Auto) 0.1 TH/MM3 Basophils # (Auto) 0.0 TH/MM3 CBC Comment DIFF FINAL Differential Comment Blood Urea Nitrogen 10 MG/DL Creatinine 0.73 MG/DL Random Glucose 96 MG/DL Calcium Level 8.7 MG/DL Sodium Level 139 MEQ/L Potassium Level 3.7 MEQ/L Chloride Level 107 MEQ/L Carbon Dioxide Level 18.5 MEQ/L Anion Gap 14 MEQ/L Estimat Glomerular Filtration Rate 116 ML/MIN Triglycerides Level 92 MG/DL Cholesterol Level 158 MG/DL LDL Cholesterol 98 MG/DL HDL Cholesterol 41.5 MG/DL Cholesterol/HDL Ratio 3.80 RATIO Imaging Last Impressions Chest X-Ray 12/09/171099 Signed Impressions: CONCLUSION: Negative examination. Lumbar Spine X-Ray 12/09/17 Signed Impressions: CONCLUSION: 1. 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 2. Otherwise, vertebral body and disc heights are maintained without acute fra cture or listhesis. Head Magnetic Resonance Angiography 12/09/17 Signed Impressions: CONCLUSION: Negative MRA [facility] ([facility]) non contrast. Head CT 12/09/17 Signed Impressions: CONCLUSION: Negative CT Head non contrast. Carotid Artery Ultrasound 12/09/17 Signed Impressions: CONCLUSION: No evidence of flow-limiting carotid stenosis. Brain MRI 12/09/17 Signed Impressions: CONCLUSION: 1. Minimal, chronic-appearing white matter changes predominantly on the right. 2. Nothing acute. Last Impressions Chest X-Ray 12/09/171099 Signed Impressions: CONCLUSION: Negative examination. Head CT 12/09/17 Signed Impressions: CONCLUSION: Negative CT Head non contrast. A/P Problem List: (1) Paresthesia ICD Codes: R20.2 - Paresthesia of skin Status: Acute Plan: - Pt is a 47 y/o male with chronic low back pain, tobacco use and regular alcohol use. - He presented to the ED for evaluation of sudden onset of dizziness, numbness in left lower extremity, and intermittent left-sided chest pain. - This reported LLE numbness occurred today while at rest at approximately 10: 00 this morning and he became increasingly anxious and felt dizzy. This reportedly seems to have been waxing and waning since onset. There has been no reported weakness in the LE and he denies any weakness or paresthesia in the UE or the RLE. Pt has good pulses in bilateral LE on examination. - Neurology has been consulted - Head CT was negative. - MRI Brain (12/09/17) --> Minimal, chronic-appearing white matter changes predominantly on the right - MRA (12/09/17) is negative - Carotid US (12/09/17) is negative. - Holter is pending. - Lumbar spine Xray with noted prominent near bridging osteophyte at L4-5 - Telemetry - ASA was given in the ED - Supportive care - DVT prophylaxis (2) Chest pain ICD Codes: R07.9 - Chest pain, unspecified Plan: - The chest pain is located on the left side and is reportedly worsened by touch and certain motions that has been occurring intermittently for the last few months, lasting about 5-10 minutes and would resolve on its own. There is no radiation of the pain anywhere. He denies any associated SOB, palpitations, nausea or diaphoresis. - He has been under increased stress over the last few months - First set of Troponin is negative. - CK is elevated slightly but pt was moving from an apartment to his house all weekend - Trend serial CE - 2D echo is pending. - Pt given ASA in the ED and we will continue this in the morning (3) Alcohol abuse ICD Codes: F10.10 - Alcohol abuse, uncomplicated Status: Chronic Plan: - He does report that he is generally an anxious person and seems to be self medicating with alcohol. - [facility] protocol - Start Librium 25mg TID (4) Tobacco abuse ICD Codes: Z72.0 - Tobacco use Status: Chronic Plan: - Pt declines nicotine patch Salma Matthews Dec 10, 2017 11:11
[2017-12-10] MEDS ORDERED: LORA-474 PO (12:42)
--- NOTE | 2017-12-10 12:50 | TR ---
Date Performed: 12/10/2017 Time Performed: 10:43:32 DOCTOR: Federica Ludwig DRUG LIST: CLINICAL HISTORY: REASON FOR TEST: REASON FOR ENDING: OBSERVATION: CONCLUSION: JODY PROTOCOL. NO CP. TEST STOPPED AFTER EXCEEDING GOAL HR SECONDARY TO SOBAND LEG FATIGUE.Maximum KR=022 Max Predicted XI=728 % Max HR Achieved=87.0% Maximum AC=724/86 Total Exercise Time=5:59 COMMENTS: No ischemia
[2017-12-10 15:00] VITALS: BP 154/89; PULSE 67; RESP 20; TEMP 96.4; O2SAT 97
--- NOTE | 2017-12-10 15:26 | EKG ---
Date Performed: 12/09/2017 Time Performed: 10:37:42 PTAGE: 47 years EKG: Sinus rhythm BORDERLINE LEFT AXIS DEVIATION INCOMPLETE RIGHT BUNDLE BRANCH BLOCK NONSPECIFIC T-WAVE ABNORMALITY B ORDERLINE ECG NO PREVIOUS TRACING DOCTOR: Kaylyn Dennis Interpretating Date/Time 12/10/2017 15:25:22
--- NOTE | 2017-12-10 15:59 | ECHRPT ---
Indication: TIA CONCLUSIONS The left ventricular systolic function is normal with an estimated ejection fraction in the range of 55-60%. Doppler parameters are consistent with impaired left ventricular relaxtion (grade 1 diastolic dysfun ction). Trace mitral valve regurgitation. There is trace tricuspid valve regurgitation. BP: / HR: Rhythm: Technical Quality: FINDINGS LEFT VENTRICLE Normal left ventricular size. There is assymetric septal hypertrophy. The left ventricular systolic function is normal with an estimated ejection fraction in the range of 55-60%. No regional wall motion abnormalities are present. Doppler parameters are consistent with impaired left ventricular relaxtion (grade 1 diastolic dysfun ction). RIGHT VENTRICLE Normal right ventricular size and systolic function. LEFT ATRIUM The left atrial size is upper limits of normal. RIGHT ATRIUM The right atrial size is normal. ATRIAL SEPTUM Normal atrial septal thickness AORTA The aortic root and proximal ascending aorta are normal in size on limited imaging. MITRAL VALVE Structurally normal mitral valve. Trace mitral valve regurgitation. No mitral valve stenosis. AORTIC VALVE Trileaflet aortic valve. No aortic valve stenosis or regurgitation. TRICUSPID VALVE Structurally normal tricuspid valve. No tricuspid valve stenosis. There is trace tricuspid valve regurgitation. PULMONARY VALVE The pulmonary valve is not well visualized. VESSELS The inferior vena cava is normal in size. PERICARDIUM No pericardial effusion. Ar Azul DO (Electronically Signed) Final Date:10 December 2017 15:58
--- NOTE | 2017-12-10 16:04 | EKG ---
Date Performed: 12/10/2017 Time Performed: 00:39:39 PTAGE: 47 years EKG: Sinus rhythm MARKED LEFT AXIS DEVIATION INCOMPLETE RIGHT BUNDLE BRANCH BLOCK ABNORMAL ECG Since the PREVIOUS TRACING , no significant change noted PREVIOUS TRACIN12/09/2017 18.31 DOCTOR: Kaylyn Dennis Interpretating Date/Time 12/10/2017 16:02:43
--- NOTE | 2017-12-10 16:04 | EKG ---
Date Performed: 12/09/2017 Time Performed: 18:31:10 PTAGE: 47 years EKG: Sinus rhythm INCOMPLETE RIGHT BUNDLE BRANCH BLOCK BORDERLINE ECG Since the PREVIOUS TRACING , no significant change noted PREVIOUS TRACIN12/09/2017 @[id number] DOCTOR: Kaylyn Dennis Interpretating Date/Time 12/10/2017 16:02:34
--- NOTE | 2017-12-11 19:33 | HM ---
Date Performed: 12/10/2017 Time Performed: 11:25:00 HOOKUP DATE: 12/10/17 11:25:00 AM Tue ANALYSIS START TIME: 12/10/2017 11:30:00 AM ANALYSIS END TIME: 12/11/2017 11:10:33 AM PATIENT AGE: 47 PATIENT HEIGHT PATIENT WEIGHT DRUG LIST PATIENT DIAGNOSIS: ANXIETY TEST NARRATIVE: The patient's average heart rate was 78 BPM. Heart rates greater than 120 B PM were noted 1% of the time. No episodes of bradycardia were noted. No pauses exceeding 2.0 sec onds were noted. 1 ventricular ectopics, which represented < 1% of the total beat count, were not ed. The highest ventricular ectopic frequency occurred from 12:00 PM to 01:00 PM Tue. During this t keesha 1 VE(s) occurred. Ventricular ectopics were observed as 1 isolated beat(s) only. No couplets or runs were noted. 20 supraventricular ectopics, which represented < 1% of the total beat count, w ere noted. The highest supraventricular ectopic frequency occurred from 01:00 PM to 02:00 PM Tue. D uring this time 3 SVE(s) occurred. No episodes of ST depression (defined as -1.0 mm or more) were noted in channel 1. No episodes of ST depression (defined as -1.0 mm or more) were noted in channel 2. No episodes of ST depression (defined as -1.0 mm or more) were noted in channel 3. TEST INTERPRETATION: Sinus rhythm Sinus tachycardia Sinus bradycardia, mild PACs Infrequent PVCs Signed by : Alejandro Wilson
== END 2017-12-10 17:12 | disposition home or self-care (01) ==
LOC: NEPC 10:25 → NEDA 13:32 → NEPHCDU 14:45
PROVIDERS: ADMIT Hospitalist; ATTEND Hospitalist
DX: G45.9 Transient cerebral ischemic attack, unspecified (principal); R07.9 Chest pain, unspecified; R42 Dizziness and giddiness; R20.0 Anesthesia of skin; F17.210 Nicotine dependence, cigarettes, uncomplicated; G89.29 Other chronic pain; M54.5 Low back pain; I83.93 Asymptomatic varicose veins of bilateral lower extremities; Y90.2 Blood alcohol level of 40-59 mg/100 ml; I45.10 Unspecified right bundle-branch block; I10 Essential (primary) hypertension; F10.10 Alcohol abuse, uncomplicated; F41.9 Anxiety disorder, unspecified; R94.31 Abnormal electrocardiogram [ECG] [EKG]; M25.78 Osteophyte, vertebrae
CPT/HCPCS: 70450; 70544; 70551; 71046; 72110; 80048; 80053; 80061; 80307; 82140; 82550; 82552; 82607; 82746; 83036; 83735; 84439; 84443; 84484; 85025; 85610; 85730; 86592; 93005; 93017; 93225; 93226; 93306; 93880; 96360; 97162; 99285; G0378; G8987; G8988; J7030